=== PATIENT | male | born 1970 | race Caucasian/White ===

== ENCOUNTER 2019-09-18 06:01 | Emergency (ER) | payer BC, OTHER ==
--- NOTE | 2019-09-18 06:11 | ED ---
GI/ HPI - HPI Summary HPI Summary: 48-year-old male with significant past medical history presents to emergency department today complaining of bloody stool 2 days. He states the symptoms began at 0400 on 09/17/2019. he states he was having a bowel movement and when he went to wipe he noticed blood on the toilet tissue. he states since then he has had diarrhea and is noticing bright red blood in the toilet bowl with bowel movements. He denies abdominal pain, fever, chills, vomiting. He states no one in the house is sick. Patient denies tobacco use, recreational drug use but endorses drinking a "6 pack a day for a few years". Denies anticoagulant use. Patient endorses family history of hemorrhoids. Patient denies fever, chest pain, abdominal pain, shortness of breath, pain with urination, pain with bowel movements, lightheadedness, syncope. - History of Current Complaint Chief Complaint: EDGIBleed Stated Complaint: BLEEDING PER PT Hx Obtained From: Patient, Family/[employer]cel[employer] Sprayer - at the bedside Onset/Duration: Started Days Ago Timing: Constant Vaginal Bleeding Description: Bright Red Pain Intensity: 1 Associated Signs and Symptoms: Positive: Bright Red Blood w/Stool, Blood w/Stool , Diarrhea. Negative: Nausea, Vomiting, Rectal Pain, External Hemorrhoid, Constipation, External Hemorrhoids, Diaphoresis, Fever, Flank Pain, Abdominal Pain, Chest Pain - Allergy/Home Medications Allergies/Adverse Reactions: Allergies Allergy/AdvReac Type Severity Reaction Status Date / Time No Known Allergies Allergy Verified 09/18/19 06:07 Home Medications: Home Medications NK [No Home Medications Reported] 09/18/19 [History Confirmed 09/18/19] PMH/Surg Hx/FS Hx/Imm Hx History: Denies: Hx Acute Renal Failure, Hx Chronic Renal Failure, Hx Dialysis Musculoskeletal History: Denies: Hx Osteoporosis Sensory History: Denies: Hx Legally Blind Infectious Disease History: No Infectious Disease History: Denies: Traveled Outside the [place] in Last 30 Days Review of Systems Constitutional: Negative Eyes: Negative ENT: Negative Cardiovascular: Negative Respiratory: Negative Positive: Diarrhea. Negative: Abdominal Pain, Vomiting, Nausea Genitourinary: Negative Musculoskeletal: Negative Skin: Negative Neurological: Negative Positive: Anxious All Other Systems Reviewed And Are Negative: Yes Physical Exam - Summary Physical Exam Summary: Rectal exam revealed bright red blood in the perirectal area shortly after bowel movement. No evidence of external hemorrhoids or anal fissure. No stool appreciated in the rectal vault. Bright red blood appreciated on the digit after rectal examination. Patient tolerated rectal examination well. No pain with examination. Rectal examination chaperoned by Jessenia Elias RN. Triage Information Reviewed: Yes Vital Signs On Initial Exam: Initial Vitals Temp Pulse Resp BP Pulse Ox 97.1 F 86 16 178/107 97 09/18/19 06:03 09/18/19 06:03 09/18/19 06:03 09/18/19 06:03 09/18/19 06:03 Vital Signs Reviewed: Yes Appearance: Positive: Well-Appearing, No Pain Distress, Well-Nourished, Obese Skin: Positive: Warm, Skin Color Reflects Adequate Perfusion Eyes: Positive: EOMI, AZUL, Conjunctiva Clear ENT: Positive: Hearing grossly normal Respiratory/Lung Sounds: Positive: Clear to Auscultation, Breath Sounds Present Cardiovascular: Positive: RRR, S1, S2 Abdomen Description: Positive: Nontender, No Organomegaly, Soft, Distended, Other: - Hyperactive bowel sounds with auscultation. Negative: CVA Tenderness ( R), CVA Tenderness (L), Guarding, McBurney's Point Tenderness Bowel Sounds: Positive: Present, Hyperactive Musculoskeletal: Positive: Normal, Strength/ROM Intact Neurological: Positive: Sensory/Motor Intact, Alert, Oriented to Person Place, Time, Normal Gait, Speech Normal Psychiatric: Positive: Normal AVPU Assessment: Alert Procedures - Sedation Patient Received Moderate/Deep Sedation with Procedure: No Diagnostics - Vital Signs Vital Signs Temp Pulse Resp BP Pulse Ox 09/18/19 06:03 97.1 F 86 16 178/107 97 - Laboratory Result Diagrams: 09/18/19 07:06 Lab Statement: Any lab studies that have been ordered have been reviewed, and results considered in the medical decision making process. GIGU Course/Dx - Course Course Of Treatment: Patient was evaluated in the emergency department today for GI bleeding. Patient was seen and examined, Vital signs noted with no evidence of fever or hemodynamic instability. Rectal exam was negative for signs of external hemorrhoid, anal fissure however, it was suggestive of likely internal hemorrhoids. CBC, INR, PTT, CRP was ordered to investigate hemoglobin and hematocrit as well as possible infectious etiology. Laboratory results showed no evidence of anemia or infectious etiology, H&H 16.. he is to follow-up with his primary care physician for further evaluation and management of likely internal hemorrhoids. he was told to avoid straining with bowel movements to take stool softeners to decrease rectal bleeding due to hemorrhoids. he is told to return to the emergency department immediately if he developed any new or worsening symptoms including shortness of breath, lightheadedness, chest pain, increased abdominal pain. Patient agrees with this plan. - Diagnoses Differential Diagnoses - Male: Diverticulitis, Appendicitis, Diarrhea, Gastritis , Hemorrhoids, Ischemic Bowel, Peptic Ulcer Disease, Rectal Fissure Provider Diagnoses: Hematochezia Discharge ED - Sign-Out/Discharge Documenting (check all that apply): Patient Departure - Discharge Plan Condition: Stable Disposition: HOME Patient Education Materials: Hemorrhoids (ED), Rectal Bleeding (ED) Referrals: Win Fernandez MD [Medical Doctor] - 2 Days Additional Instructions: You were seen in the emergency department today for rectal bleeding. I'm unsure what is causing your symptoms however, it is likely due to internal hemorrhoids which are benign. Please limit straining with bowel movements and begin taking a stool softener to limit rectal bleeding. Please follow-up with your primary care doctor in 2-3 days for further evaluation and management of your symptoms. Please return to the emergency department immediately if you develop any new or worsening symptoms including abdominal pain, shortness of breath, chest pain, lightheadedness. - Billing Disposition and Condition Condition: STABLE Disposition: Home
[2019-09-18 07:18] LABS: ABS Eosinophils 0.4 10^3/ul (0-0.6); ABS Monocytes 0.4 10^3/ul (0-0.8); ABS Neutrophils 3.8 10^3/ul (1.5-7.7); Hematocrit 45 % (42-52); Hemoglobin 16.1 g/dL (14.0-18.0); Lymphocyte % 17.7 %; Mean Corpuscular HGB Conc 36 g/dL (31-36); Mean Corpuscular Hemoglobin 33 pg (27-31); Mean Corpuscular Volume 93 fL (80-94); Mean Platelet Volume 7.9 fL (7.4-10.4); Nucleated Red Blood Cells % 0.1; Platelet Count 205 10^3/uL (150-450); Red Blood Count 4.82 10^6 /uL (4.18-5.48); Red Cell Distribution Width 13 % (10-15); White Blood Count 5.6 10^3/uL (3.5-10.8)
[2019-09-18 07:23] LABS: Activated Partial Thrombo Time 32.8 seconds (26.0-38.0); INR 1.21 (0.82-1.09)
[2019-09-18 07:34] LABS: Albumin 4.4 g/dL (3.2-5.2); Albumin/Globulin Ratio 1.6 (1-3); BUN/Creatinine Ratio 13.9 (8-20); C Reactive Protein 5.37 mg/L (<8.01); Calcium 9.3 mg/dL (8.6-10.3); EGFR African American 95.4 (>60); EGFR Non-African American 78.8 (>60); Globulin 2.8 g/dL (2-4); Potassium 4.4 mmol/L (3.5-5.0); Total Bilirubin 1.4 mg/dL (0.2-1.0); Total Protein 7.2 g/dL (6.4-8.9)
[2019-09-18 07:47] VITALS: BP 171/99
== END 2019-09-18 07:40 | disposition home or self-care (01) ==
LOC: ED 06:01
DX: K92.1 Melena (principal)
CPT/HCPCS: 36415; 80053; 85025; 85610; 85730; 86140; 99282